=== PATIENT | female | born 1980 | race American Indian/Alaskan Native ===

== ENCOUNTER 2019-11-09 16:10 | Emergency (ER) | payer OTHER ==
[2019-11-09] MEDS ORDERED: KETOROLAC 30 MG/ML VIAL IVP STA (16:29)
[2019-11-09] MEDS ORDERED: diazePAM INJ 5 MG/ML SYRINGE IVP STA ×2 (16:29→17:50)
--- NOTE | 2019-11-09 16:32 | ED Physician Documentation ---
PD HPI BACK PAIN - Stated complaint Stated Complaint: BACK SPASMS - Chief complaint Chief Complaint: Back Pain - History obtained from History obtained from: Patient, Friend - History of Present Illness Timing - onset: Last night Timing - duration: Days (1) Timing - details: Gradual onset Pain level max: 9 Pain level now: 9 Location: Mid, Lower, Right, Left Quality: Pain, Spasm, Similar to prior episodes Associated symptoms: No: Fever, Weakness, Numbness, Incontinent of urine, Unable to urinate, Hematuria, Incontinent of stool Improves with: Rest Worsened by: Movement Contributing factors: Other (Recently traveled here for vacation from [place].) Recently seen: Not recently seen - Additional information Additional information: 39-year-old female complaining of back spasm. She has had a longstanding history of this for many years. She is on Lasix for peripheral edema and has been on this for approximately 18 months. Does not know when the last time she had blood work checked was. No trauma. No loss of bowel or bladder control. She is not , breast-feeding or trying to become . 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 HEENT: None Psych: Anxiety - Past Surgical History Past Surgical History: Yes Ortho: Spine surgery /MANUFACTURING SR ENGINEER: section - Present Medications Home Medications: Ambulatory Orders Medication Instructions Recorded Confirmed Cholecalciferol (Vitamin D3) 1 tab PO DAILY 11/04/14 11/04/14 [Vitamin D-3] Citalopram [CeleXA] 20 mg PO DAILY 11/04/14 11/04/14 Levothyroxine [Synthroid] 125 mcg PO DAILY 11/04/14 11/04/14 Pramipexole [Mirapex] 0.25 mg PO DAILY 11/04/14 11/04/14 Methocarbamol [Robaxin-750] 750 mg PO Q8H PRN #10 tablet 11/09/19 - Allergies Allergies/Adverse Reactions: Allergies Allergy/AdvReac Type Severity Reaction Status Date / Time No Known Drug Allergies Allergy Verified 11/09/19 16:13 - Social History Does the pt smoke?: Yes Smoking Status: Former smoker Does the pt drink ETOH?: Yes Does the pt have substance abuse?: No - Immunizations Immunizations are current?: Yes PD ED PE NORMAL - Vitals Vital signs reviewed: Yes - General General: Alert and oriented X 3, No acute distress - HEENT HEENT: Moist mucous membranes - Neck Neck: Supple, no meningeal sign - Cardiac Cardiac: RRR - Respiratory Respiratory: No respiratory distress, Clear bilaterally - Abdomen Abdomen: Soft, Non tender, Non distended - Back Back: No spinal TTP, Other (Paraspinal spasm bilateral low lumbar. No midline tenderness to palpation. No step-off or deformity.) - Derm Derm: Warm and dry - Extremities Extremities: Normal ROM s pain, No calf tenderness / cord - Neuro Neuro: Alert and oriented X 3, No motor deficit, No sensory deficit, Other (Normal bilateral lower extremity patellar and ankle jerk reflexes. Normal great toe extension bilaterally. no saddle anesthesia) Results - Vitals Vitals: Vital Signs - 24 hr 11/09/19 16:13 Temperature 36.6 C Heart Rate 84 Respiratory 18 Rate Blood Pressure 140/100 H O2 Saturation 98 Oxygen O2 Source Room air - Labs Labs: Laboratory Tests 11/09/19 11/09/19 16:55 16:55 WBC 7.1 RBC 4.40 Hgb 14.6 Hct 42.1 MCV 95.7 MCH 33.2 H MCHC 34.7 RDW 12.9 Plt Count 365 MPV 10.4 Neut # (Auto) 5.5 Lymph # (Auto) 1.1 L Finney # (Auto) 0.4 Eos # (Auto) 0.1 Baso # (Auto) 0.0 Absolute Nucleated RBC 0.00 Nucleated RBC % 0.0 Sodium 136 Potassium 3.8 Chloride 101 Carbon Dioxide 23 Anion Gap 12.0 BUN 9 Creatinine 0.7 Estimated GFR (MDRD) 93 Glucose 131 H Calcium 8.3 L Phosphorus 1.7 L Magnesium 2.0 Total Bilirubin 0.7 AST 28 ALT 27 Alkaline Phosphatase 52 Total Protein 7.4 Albumin 4.0 Globulin 3.4 Albumin/Globulin Ratio 1.2 Lipase 25 PD MEDICAL DECISION MAKING - ED course Complexity details: reviewed results, re-evaluated patient, considered differential (No cauda equina, no spinal epidural abscess, no fracture, no aortic dissection or evidence of aneursym rupture), d/w patient ED course: Patient with acute on chronic back pain. Given Toradol, Valium. Pain improved. Laboratory tests were checked secondary to the Lasix. Patient still having some mild spasm, but definitely improved. Will prescribe muscle relaxants for home and have her follow-up with her doctor. She was also given magnesium. No evidence of fracture, cauda equina, epidural abscess. Patient counseled regarding signs and symptoms for which I believe and urgent re-evaluation would be necessary. Patient with good understanding of and agreement to plan and is comfortable going home at this time This document was made in part using voice recognition software. While efforts are made to proofread this document, sound alike and grammatical errors may occur. Departure - Departure Disposition: 01 Home, Self Care Clinical Impression: Back spasm Condition: Good Instructions: ED Spasm Back No Trauma Follow-Up: Your,doctor in 1 week [Other] Prescriptions: Methocarbamol [Robaxin-750] 750 mg PO Q8H PRN #10 tablet PRN Reason: back spasm Comments: You are not to drive today. Return if you worsen. Follow-up with your doctor for further care when you return to [place]. You may ride in the car, you just cannot operate the vehicle.
[2019-11-09 17:05] LABS: BASOPHILS % (AUTO) 0.6 %; EOSINOPHILS # (AUTO) 0.1 10^3/uL (0.0-0.7); EOSINOPHILS % (AUTO) 1.3 %; HGB - HEMOGLOBIN 14.6 g/dL (12.0-16.0); LYMPHOCYTES # (AUTO) 1.1 10^3/uL (1.5-3.5); LYMPHOCYTES % (AUTO) 15.4 %; MEAN CORPUSCULAR HEMOGLOBIN 33.2 pg (27.0-31.0); MEAN CORPUSCULAR HGB CONC 34.7 g/dL (32.0-36.0); MEAN CORPUSCULAR VOLUME 95.7 fL (81.0-99.0); MEAN PLATELET VOLUME 10.4 fL (7.9-10.8); MONOCYTES # (AUTO) 0.4 10^3/uL (0.0-1.0); MONOCYTES % (AUTO) 5.6 %; NEUTROPHILS # (AUTO) 5.5 10^3/uL (1.5-6.6); NEUTROPHILS % (AUTO) 76.8 %; PLT - PLATELET COUNT 365 10^3/uL (130-450); RED CELL DISTRIBUTION WIDTH 12.9 % (12.0-15.0); WHITE BLOOD COUNT 7.1 x10^3/uL (4.8-10.8)
[2019-11-09 17:16] LABS: ALBUMIN/GLOBULIN RATIO 1.2 (1.0-2.2); BILIRUBIN,TOTAL 0.7 mg/dL (0.2-1.0); CALCIUM 8.3 mg/dL (8.5-10.3); CREATININE 0.7 mg/dL (0.4-1.0); PHOSPHORUS 1.7 mg/dL (2.5-4.6); TOTAL PROTEIN 7.4 g/dL (6.7-8.2)
[2019-11-09] MEDS ORDERED: MAGNESIUM SULFATE 2 GRAM 2 GM/50 ML BAG IV ONE (17:35)
[2019-11-09] MEDS ORDERED: methocarbamoL 500 MG TABLET PO STA (18:49)
[2019-11-09 19:22] VITALS: BP 142/78
== END 2019-11-09 19:21 | disposition home or self-care (01) ==
LOC: ED 16:10
DX: M62.830 Muscle spasm of back (principal); M54.5 Low back pain; G89.29 Other chronic pain; Z87.891 Personal history of nicotine dependence
CPT/HCPCS: 36415; 80053; 83690; 83735; 84100; 85025; 96365; 96375; 96376; 99284; A9270